=== PATIENT | female | born 1990 | race Two or more races ===

== ENCOUNTER 2017-05-24 20:53 | Emergency (ER) | payer OTHER ==
[~2017-05-24] VITALS: Ht 162.6 cm; Wt 99.8 kg
[2017-05-24 21:58] VITALS: BP 138/62
[2017-05-28 10:21] LABS: Hepatitis B Surface Antibody Positive
[2017-05-28 10:32] LABS: Hepatitis B Surface Antigen Negative (Negative)
== END 2017-05-24 23:59 | disposition home or self-care (01) ==
LOC: ER 20:53
DX: S61.012A Laceration without foreign body of left thumb without damage to nail, initial encounter (principal); W45.8XXA Other foreign body or object entering through skin, initial encounter; Y93.89 Activity, other specified; Y92.89 Other specified places as the place of occurrence of the external cause; Y99.8 Other external cause status
CPT/HCPCS: 12001; 36415; 86703; 86706; 86803; 87340

== ENCOUNTER → 2017-10-11 | Outpatient (CLI) | payer OTHER ==
[2017-10-11 15:57] LABS: Hepatitis B Surface Antibody Positive
[2017-10-11 16:51] LABS: Hepatitis B Surface Antigen Negative (Negative)
== END | disposition home or self-care (01) ==
LOC: LAB 15:08
PROVIDERS: ATTEND Preventive Medicine Preventive Medicine/Occupational Environmental Medicine
DX: S65.412A Laceration of blood vessel of left thumb, initial encounter (principal); Z77.21 Contact with and (suspected) exposure to potentially hazardous body fluids; Y99.0 Civilian activity done for income or pay; Y92.142 Bathroom in prison as the place of occurrence of the external cause; Y28.8XXA Contact with other sharp object, undetermined intent, initial encounter
CPT/HCPCS: 36415; 86703; 86706; 86803; 87340

== ENCOUNTER 2019-07-19 10:53 | Observation (INO) | payer MEDICAID, OTHER ==
[2019-07-19] MEDS ORDERED: PREN-153 OR (12:38)
== END 2019-07-19 16:03 | disposition home or self-care (01) | DRG 566 ==
LOC: LDRP 10:53
PROVIDERS: ADMIT Specialist; ATTEND Specialist
DX: O48.0 Post-term pregnancy (principal); Z3A.40 40 weeks gestation of pregnancy
CPT/HCPCS: 59025; 76818; 81002; G0378

== ENCOUNTER 2019-07-21 11:10 | Observation (INO) | payer MEDICAID ==
[~2019-07-21 11:10] MED LIST: PREN-153 OR
== END 2019-07-21 13:30 | disposition home or self-care (01) | DRG 566 ==
LOC: LDRP 11:10
PROVIDERS: ADMIT Obstetrics & Gynecology; ATTEND Obstetrics & Gynecology
DX: O48.0 Post-term pregnancy (principal); Z3A.40 40 weeks gestation of pregnancy
CPT/HCPCS: 59025; 76818; 81002; G0378

== ENCOUNTER 2019-07-21 19:23 | Inpatient (IN) | payer MEDICAID ==
[~2019-07-21] VITALS: Ht 162.6 cm; Wt 103.0 kg
[2019-07-21] MEDS ORDERED: LACT. RINGERS/OXYTOCIN 20UNITS 1,000 ML IV SCH (20:01)
[2019-07-21] MEDS ORDERED: LIDOCAINE 1% (LOCAL ANESTH.) PF 5ml SDV IJ ONE (20:15)
[2019-07-21] MEDS ORDERED: PHISODERM TOP SOLN 240ML BTL TOP PRN (20:15)
[2019-07-21] MEDS ORDERED: DERMOPLAST 60ML BOTTLE TOP PRN (20:15)
[2019-07-21] MEDS ORDERED: WITCH HAZEL-GLYCERIN PAD TOP PRN (20:15)
[2019-07-21 20:59] LABS: Basophils # (auto) 0 10 ^3/uL (0-0.2); Basophils % (auto) 0.2 % (0.0-2.0); Eosinophils # (auto) 0.1 10 ^3/uL (0-0.8); Eosinophils % (auto) 0.7 % (0.0-7.0); Hematocrit 36.1 % (36.0-46.0); Hemoglobin 12.6 g/dL (12.2-16.2); Lymphocytes # (auto) 2.5 10 ^3/uL (0.4-5.4); Lymphocytes % (auto) 25.7 % (10.0-50.0); Mean Corpuscular Hemoglobin 31.4 pg (28.0-32.0); Mean Corpuscular Hgb Conc. 34.8 g/dL (32.0-36.0); Mean Corpuscular Volume 90.1 fL (80.0-100.0); Monocytes # (auto) 0.5 10 ^3/uL (0-1.3); Monocytes % (auto) 5.7 % (0.0-12.0); Neutrophils # (auto) 6.5 10 ^3/uL (1.6-8.6); Neutrophils % (auto) 67.7 % (37.0-80.0); Platelet Count (auto) 268 10^3/uL (140-450); Red Blood Cells 4.01 10^6/uL (4.0-5.20); Red Cell Distribution Width 13.6 % (11.8-14.3); White Blood Cell 9.6 10^3/uL (4.4-10.8)
[2019-07-21 21:12] LABS: Urine Bacteria FEW /hpf (None Seen); Urine Blood TRACE /uL (Negative); Urine Hyaline Cast FEW /lpf (0 - 2); Urine Mucus FEW (None Seen); Urine Specific Gravity 1.027 (1.001-1.035); Urine WBC 10 /hpf (0 - 5)
[2019-07-21 21:15] LABS: INR 0.91 (0.9-1.15); Partial Thromboplastin Time 27.9 sec (23.64-32.05)
[2019-07-21 21:17] LABS: Albumin 2.3 g/dL (3.4-5.0); Anion Gap 8 (5-15); Blood Urea Nitrogen 12 mg/dL (7-18); Calcium 8.7 mg/dL (8.5-10.1); Carbon Dioxide 21 mmol/L (21-32); Chloride 109 mmol/L (98-107); Glucose 92 mg/dL (74-106); Potassium 3.9 mmol/L (3.5-5.1); Sodium 138 mmol/L (136-145)
[2019-07-21 21:19] LABS: Alanine Aminotransferase 15 U/L (13-56); Aspartate Aminotransferase 17 U/L (15-37); GFR African American 94 mL/min; GFR Non-African American 78 mL/min
[2019-07-21 21:22] LABS: Amphetamine Screen, Urine NEGATIVE (NEGATIVE); Barbiturate Scree,Urine NEGATIVE (NEGATIVE); Benzodiazephine Screen, Urine NEGATIVE (NEGATIVE); Cannabinoid Screen, Urine NEGATIVE (NEGATIVE); Cocaine Screen, Urine NEGATIVE (NEGATIVE); Opiate Scree,Urine NEGATIVE (NEGATIVE); Phencyclidine Screen, Urine NEGATIVE (NEGATIVE)
[2019-07-21 21:22] LABS: Alkaline Phosphatase 213 U/L (45-117); Bilirubin, Total < 0.1 mg/dL (0.2-1.0); Total Protein 6.9 g/dL (6.4-8.2)
[2019-07-21] MEDS: LACTATED RINGER'S 1,000 ML IV SCH (21:47)
[2019-07-21] MEDS ORDERED: LIDOCAINE 2%HCL (LOCAL ANESTH.) INJ 20ML MDV IJ ONE (22:00)
[2019-07-21] MEDS: miSOPROStol 50 MCG per PRE-CUT 1/2 TAB PO PRN (22:00)
[2019-07-22] MEDS ORDERED: METHYLERGONOVINE MALEATE 0.2 MG/ML AMP IM ONE (01:15)
[2019-07-22] MEDS: miSOPROStol 50 MCG per PRE-CUT 1/2 TAB PO PRN ×3 (02:00→10:19)
[2019-07-22] MEDS: LACTATED RINGER'S 1,000 ML IV SCH ×2 (02:01→09:37)
[2019-07-23 07:07] LABS: RPR Non Reactive (Non Reactive)
== END 2019-07-22 14:15 | disposition home or self-care (01) | DRG 566 ==
LOC: LDRP 19:23
PROVIDERS: ADMIT Obstetrics & Gynecology; ATTEND Obstetrics & Gynecology
PROC: 3E0P7VZ Introduction of Hormone into Female Reproductive, Via Natural or Artificial Opening (ICD-10-PCS; principal; 2019-07-21)
DX: O48.0 Post-term pregnancy (principal); Z3A.40 40 weeks gestation of pregnancy
CPT/HCPCS: 36415; 59025; 76818; 80053; 80307; 81001; 81002; 84112; 85025; 85610; 85730; 86592; 86850; 86900; 86901; 96361; 96365; 96366; G0378; J2590

== ENCOUNTER 2019-07-23 05:35 | Inpatient (IN) | payer MEDICAID ==
[~2019-07-23] VITALS: Ht 162.6 cm; Wt 103.0 kg
[2019-07-23] MEDS ORDERED: LACT. RINGERS/OXYTOCIN 20UNITS 1,000 ML IV ONE (05:50)
[2019-07-23] MEDS ORDERED: OXYTOCIN 10UNIT/ML 1ML VIAL ONE (05:50)
[2019-07-23] MEDS ORDERED: OXYTOCIN 10UNIT/ML 1ML VIAL IM ONE (06:30)
[2019-07-23] MEDS ORDERED: LACTATED RINGER'S 1,000 ML IV SCH (06:37)
[2019-07-23] MEDS ORDERED: LACT. RINGERS/OXYTOCIN 20UNITS 1,000 ML IV SCH (06:37)
[2019-07-23] MEDS ORDERED: CARBOPROST TROMETHAMINE 250 MCG/1ML VIAL IM PRN (06:45)
[2019-07-23] MEDS ORDERED: PHISODERM TOP SOLN 240ML BTL TOP PRN (06:45)
[2019-07-23] MEDS ORDERED: WITCH HAZEL-GLYCERIN PAD TOP PRN (06:45)
[2019-07-23] MEDS ORDERED: METHYLERGONOVINE MALEATE 0.2 MG/ML AMP IM PRN (06:45)
[2019-07-23] MEDS ORDERED: DERMOPLAST 60ML BOTTLE TOP PRN (06:45)
[2019-07-23] MEDS ORDERED: LIDOCAINE 2%HCL (LOCAL ANESTH.) INJ 20ML MDV ID ONE (06:45)
[2019-07-23] MEDS ORDERED: ACETAMINOPHEN 325 MG TAB PO PRN (07:30)
[2019-07-23] MEDS ORDERED: IBUPROFEN 600 MG TAB PO PRN (07:30)
[2019-07-23 07:51] LABS: Basophils # (auto) 0 10 ^3/uL (0-0.2); Basophils % (auto) 0.1 % (0.0-2.0); Eosinophils # (auto) 0 10 ^3/uL (0-0.8); Hematocrit 37.6 % (36.0-46.0); Hemoglobin 12.7 g/dL (12.2-16.2); Lymphocytes % (auto) 4.9 % (10.0-50.0); Mean Corpuscular Hemoglobin 30.1 pg (28.0-32.0); Mean Corpuscular Hgb Conc. 33.7 g/dL (32.0-36.0); Mean Corpuscular Volume 89.6 fL (80.0-100.0); Monocytes # (auto) 0.6 10 ^3/uL (0-1.3); Monocytes % (auto) 3.1 % (0.0-12.0); Neutrophils # (auto) 18.4 10 ^3/uL (1.6-8.6); Neutrophils % (auto) 91.9 % (37.0-80.0); Platelet Count (auto) 261 10^3/uL (140-450); Red Cell Distribution Width 13.6 % (11.8-14.3)
[2019-07-23 08:14] LABS: Albumin 2.1 g/dL (3.4-5.0); Calcium 8.7 mg/dL (8.5-10.1)
[2019-07-23 08:15] LABS: INR 0.94 (0.9-1.15); Partial Thromboplastin Time 28.6 sec (23.64-32.05)
[2019-07-23 08:16] LABS: BUN/Creatinine Ratio 16.4
[2019-07-23 08:18] LABS: Bilirubin, Total 0.3 mg/dL (0.2-1.0); Total Protein 6.8 g/dL (6.4-8.2)
--- NOTE | 2019-07-23 09:38 | NUR ---
Ambulation: Patient OOB with standby assistance by RN. Patient ambulated to bathroom with steady gait. Patient unable to void at this time. Educated pt regarding importance of first void within 6 hours of delivery. Encouraged to PO hydrate. Pt verbalizes understanding and agrees to comply. [facility] teaching provided with returned demonstration by patient. Dermoplast, tucks, and clean peripad applied. Clean gown provided and bed linen changed. Patient ambulated back to bed with steady gait and no distress noted.
[2019-07-23 11:00] VITALS: BP 109/58
[2019-07-23 14:30] VITALS: BP 106/52
[2019-07-23 19:00] VITALS: BP 101/50
[2019-07-23 23:00] VITALS: BP 100/54
[2019-07-24 03:00] VITALS: BP 101/57
[2019-07-24 04:06] LABS: RPR Non Reactive (Non Reactive)
[2019-07-24 06:30] VITALS: BP 108/67
[2019-07-24 11:20] VITALS: BP 121/62
[2019-07-24 14:30] VITALS: BP 122/66
--- NOTE | 2019-07-24 15:45 | NUR ---
PT GIVEN DISCHARGE INSTRUCTIONS AT BEDSIDE AND EDUCATION PROVIDED ON FOLLOW UP APPOINTMENTS.
--- NOTE | 2019-07-24 17:45 | NUR ---
Discharge: Discharge instructions given as ordered. Pt encouraged to follow up with [facility] as instructed. All questions and concerns addressed. Patient verbalized understanding. Medication reconciliation completed and copy given to patient. All required/requested vaccines given and copies of vaccinations given to patient. Patient encouraged to prepare to depart unit.
--- NOTE | 2019-07-24 17:55 | NUR ---
Discharge: Patient taken to vehicle ambulatory via steady gait with all personal belongings, accompanied by staff and family member. No distress noted at time of departure, no adverse changes in status since initial assessment.
== END 2019-07-24 17:30 | disposition home or self-care (01) | DRG 560 ==
LOC: LDRP 05:35
PROVIDERS: ADMIT Obstetrics & Gynecology; ATTEND Obstetrics & Gynecology
PROC: 10E0XZZ Delivery of Products of Conception, External Approach (ICD-10-PCS; principal; 2019-07-23)
PROC: 0UQMXZZ Repair Vulva, External Approach (ICD-10-PCS; 2019-07-23)
DX: O62.3 Precipitate labor (principal); O69.81X0 Labor and delivery complicated by cord around neck, without compression, not applicable or unspecified; Z37.0 Single live birth; Z3A.40 40 weeks gestation of pregnancy; O70.0 First degree perineal laceration during delivery
CPT/HCPCS: 36415; 59025; 59409; 80053; 84112; 85025; 85610; 85730; 86592; 86850; 86900; 86901; 96372; G0378; J2590

== ENCOUNTER → 2021-09-06 | Outpatient (CLI) | payer MEDICAID ==
[~2021-09-06] MED LIST changes: -PREN-153 OR; +PREN1TAB71 OR
[2021-09-06 10:59] LABS: Basophils # (auto) 0 10 ^3/uL (0-0.2); Basophils % (auto) 0.5 % (0.0-2.0); Eosinophils # (auto) 0.2 10 ^3/uL (0-0.8); Hematocrit 37.3 % (36.0-46.0); Hemoglobin 12.9 g/dL (12.2-16.2); Lymphocytes # (auto) 2.3 10 ^3/uL (0.4-5.4); Lymphocytes % (auto) 26.5 % (10.0-50.0); Mean Corpuscular Hemoglobin 30.7 pg (28.0-32.0); Mean Corpuscular Hgb Conc. 34.5 g/dL (32.0-36.0); Monocytes # (auto) 0.5 10 ^3/uL (0-1.3); Monocytes % (auto) 5.4 % (0.0-12.0); Neutrophils # (auto) 5.7 10 ^3/uL (1.6-8.6); Neutrophils % (auto) 65.6 % (37.0-80.0); Nucleated Red Blood Cells % 0.1 %; Red Blood Cells 4.19 10^6/uL (4.0-5.20); Red Cell Distribution Width 13.4 % (11.8-14.3); White Blood Cell 8.7 10^3/uL (4.4-10.8)
[2021-09-06 11:31] LABS: Amphetamine Screen, Urine NEGATIVE (NEGATIVE); Barbiturate Scree,Urine NEGATIVE (NEGATIVE); Benzodiazephine Screen, Urine NEGATIVE (NEGATIVE); Cannabinoid Screen, Urine NEGATIVE (NEGATIVE); Cocaine Screen, Urine NEGATIVE (NEGATIVE); Opiate Scree,Urine NEGATIVE (NEGATIVE); Phencyclidine Screen, Urine NEGATIVE (NEGATIVE)
== END | disposition home or self-care (01) ==
LOC: LAB 09:48
PROVIDERS: ATTEND Obstetrics & Gynecology
DX: Z31.430 Encounter of female for testing for genetic disease carrier status for procreative management (principal); Z11.3 Encounter for screening for infections with a predominantly sexual mode of transmission; Z72.51 High risk heterosexual behavior; Z36.1 Encounter for antenatal screening for raised alphafetoprotein level
CPT/HCPCS: 36415; 80307; 81025; 83036; 84112; 84144; 85025; 87086

== ENCOUNTER → 2021-09-28 | Outpatient (CLI) | payer BC | END | disposition home or self-care (01) | LOC: LAB 10:01 | PROVIDERS: ATTEND Obstetrics & Gynecology | DX: Z34.80 Encounter for supervision of other normal pregnancy, unspecified trimester (principal) | CPT/HCPCS: 86703; 86762; 86850; 86900; 86901 ==

== ENCOUNTER → 2021-10-19 | Outpatient (CLI) | payer BC ==
[2021-10-20 05:06] LABS: RPR Non Reactive (Non Reactive)
== END | disposition home or self-care (01) ==
LOC: LAB 09:01
PROVIDERS: ATTEND Obstetrics & Gynecology
DX: Z11.3 Encounter for screening for infections with a predominantly sexual mode of transmission (principal)
CPT/HCPCS: 86592

== ENCOUNTER → 2021-12-21 | Outpatient (CLI) | payer BC ==
[2021-12-21 09:33] LABS: Basophils # (auto) 0.1 10 ^3/uL (0-0.2); Basophils % (auto) 0.6 % (0.0-2.0); Eosinophils # (auto) 0.1 10 ^3/uL (0-0.8); Eosinophils % (auto) 0.9 % (0.0-7.0); Hematocrit 34.3 % (36.0-46.0); Hemoglobin 11.4 g/dL (12.2-16.2); Lymphocytes # (auto) 1.8 10 ^3/uL (0.4-5.4); Lymphocytes % (auto) 13.2 % (10.0-50.0); Mean Corpuscular Hemoglobin 30.3 pg (28.0-32.0); Mean Corpuscular Hgb Conc. 33.2 g/dL (32.0-36.0); Mean Corpuscular Volume 91.1 fL (80.0-100.0); Monocytes # (auto) 0.7 10 ^3/uL (0-1.3); Monocytes % (auto) 5.2 % (0.0-12.0); Neutrophils # (auto) 10.7 10 ^3/uL (1.6-8.6); Neutrophils % (auto) 80.1 % (37.0-80.0); Red Blood Cells 3.76 10^6/uL (4.0-5.20); Red Cell Distribution Width 13.5 % (11.8-14.3); White Blood Cell 13.3 10^3/uL (4.4-10.8)
== END | disposition home or self-care (01) ==
LOC: LAB 09:08
PROVIDERS: ATTEND Obstetrics & Gynecology
DX: O99.810 Abnormal glucose complicating pregnancy (principal)
CPT/HCPCS: 36415; 82951; 83036; 85025; 87340

== ENCOUNTER 2022-01-24 07:32 | Observation (INO) | payer BC | END 2022-01-24 12:50 | disposition home or self-care (01) | LOC: LDRP 11:05 | PROVIDERS: ADMIT Obstetrics & Gynecology; ATTEND Obstetrics & Gynecology | DX: O24.419 Gestational diabetes mellitus in pregnancy, unspecified control (principal); Z3A.31 31 weeks gestation of pregnancy | CPT/HCPCS: 59025; 76818; 81002; 82948; 82962; 94760; G0378 ==

== ENCOUNTER 2022-01-31 07:35 | Observation (INO) | payer BC | END 2022-01-31 11:24 | disposition home or self-care (01) | LOC: LDRP 09:09 → UNDOADMOB 09:09 → LDRP 10:05 → UNDODISOB 11:24 | PROVIDERS: ADMIT Obstetrics & Gynecology; ATTEND Obstetrics & Gynecology | DX: O24.419 Gestational diabetes mellitus in pregnancy, unspecified control (principal); O26.893 Other specified pregnancy related conditions, third trimester; M25.559 Pain in unspecified hip; Z3A.32 32 weeks gestation of pregnancy | CPT/HCPCS: 59025; 76818; 81002; 82962; 94760; G0378 ==

== ENCOUNTER 2022-02-07 09:17 | Observation (INO) | payer BC | END 2022-02-08 13:05 | disposition home or self-care (01) | LOC: UNDOADMOB 02-08 10:20 → LDRP 02-08 10:20 | PROVIDERS: ADMIT Obstetrics & Gynecology; ATTEND Obstetrics & Gynecology | DX: O24.419 Gestational diabetes mellitus in pregnancy, unspecified control (principal); Z3A.33 33 weeks gestation of pregnancy | CPT/HCPCS: 59025; 76818; 81002; 82948; 82962 ==

== ENCOUNTER 2022-02-14 08:47 | Observation (INO) | payer BC | END 2022-02-14 11:24 | disposition home or self-care (01) | LOC: UNDOADMOB 10:09 → LDRP 10:09 → UNDODISOB 11:24 | PROVIDERS: ADMIT Obstetrics & Gynecology; ATTEND Obstetrics & Gynecology | DX: O24.419 Gestational diabetes mellitus in pregnancy, unspecified control (principal); Z3A.34 34 weeks gestation of pregnancy; Z79.899 Other long term (current) drug therapy | CPT/HCPCS: 59025; 76818; 81002; 82948; 82962; 94760; G0378 ==

== ENCOUNTER 2022-02-21 10:51 | Observation (INO) | payer BC | END 2022-02-21 13:40 | disposition home or self-care (01) | LOC: LDRP 10:51 | PROVIDERS: ADMIT Obstetrics & Gynecology; ATTEND Obstetrics & Gynecology | DX: O24.419 Gestational diabetes mellitus in pregnancy, unspecified control (principal); Z3A.35 35 weeks gestation of pregnancy | CPT/HCPCS: 59025; 76818; 81002; 82948; 82962; 94760; G0378 ==

== ENCOUNTER → 2022-02-21 | Outpatient (CLI) | payer BC ==
[2022-02-21 14:15] LABS: Basophils # (auto) 0 10 ^3/uL (0-0.2); Basophils % (auto) 0.3 % (0.0-2.0); Eosinophils # (auto) 0.1 10 ^3/uL (0-0.8); Eosinophils % (auto) 0.9 % (0.0-7.0); Hematocrit 37.1 % (36.0-46.0); Hemoglobin 12.4 g/dL (12.2-16.2); Lymphocytes # (auto) 1.9 10 ^3/uL (0.4-5.4); Lymphocytes % (auto) 21.8 % (10.0-50.0); Mean Corpuscular Hemoglobin 30.1 pg (28.0-32.0); Mean Corpuscular Hgb Conc. 33.3 g/dL (32.0-36.0); Mean Corpuscular Volume 90.4 fL (80.0-100.0); Monocytes # (auto) 0.3 10 ^3/uL (0-1.3); Monocytes % (auto) 3.1 % (0.0-12.0); Neutrophils # (auto) 6.5 10 ^3/uL (1.6-8.6); Neutrophils % (auto) 73.9 % (37.0-80.0); Red Cell Distribution Width 13.8 % (11.8-14.3); White Blood Cell 8.8 10^3/uL (4.4-10.8)
[2022-02-22 06:06] LABS: RPR Non Reactive (Non Reactive)
== END | disposition home or self-care (01) ==
LOC: LAB 13:57
PROVIDERS: ATTEND Obstetrics & Gynecology
DX: Z34.83 Encounter for supervision of other normal pregnancy, third trimester (principal); Z3A.00 Weeks of gestation of pregnancy not specified
CPT/HCPCS: 36415; 84112; 85025; 86592

== ENCOUNTER 2022-02-28 10:15 | Observation (INO) | payer BC | END 2022-02-28 14:12 | disposition home or self-care (01) | LOC: LDRP 10:15 → UNDOADMOB 10:15 → LDRP 12:43 | PROVIDERS: ADMIT Obstetrics & Gynecology; ATTEND Obstetrics & Gynecology | DX: O24.419 Gestational diabetes mellitus in pregnancy, unspecified control (principal); Z3A.36 36 weeks gestation of pregnancy | CPT/HCPCS: 59025; 76818; 81002; 82948; 82962; G0378 ==

== ENCOUNTER 2022-03-07 08:58 | Observation (INO) | payer BC | END 2022-03-07 14:36 | disposition home or self-care (01) | LOC: LDRP 13:02 → UNDOADMOB 13:42 → LDRP 13:42 → UNDODISOB 14:36 | PROVIDERS: ADMIT Obstetrics & Gynecology; ATTEND Obstetrics & Gynecology | DX: O24.419 Gestational diabetes mellitus in pregnancy, unspecified control (principal); Z3A.37 37 weeks gestation of pregnancy | CPT/HCPCS: 59025; 76818; 81002; 82948; 82962; G0378 ==

== ENCOUNTER 2022-03-14 10:16 | Observation (INO) | payer BC ==
[2022-03-14] MEDS ORDERED: GLYB1.257 PO (14:10)
== END 2022-03-14 14:33 | disposition home or self-care (01) ==
LOC: LDRP 13:32 → UNDOADMOB 13:32 → LDRP 13:35
PROVIDERS: ADMIT Obstetrics & Gynecology; ATTEND Obstetrics & Gynecology
DX: O24.419 Gestational diabetes mellitus in pregnancy, unspecified control (principal); Z3A.38 38 weeks gestation of pregnancy
CPT/HCPCS: 59025; 76818; 81002; 82948; 82962; 94760; G0378

== ENCOUNTER 2022-03-17 08:31 | Observation (INO) | payer BC ==
[~2022-03-17 08:31] MED LIST changes: +GLYB1.257 PO
== END 2022-03-17 12:03 | disposition home or self-care (01) ==
LOC: UNDOADMOB 10:05 → LDRP 10:05 → UNDODISOB 12:03
PROVIDERS: ADMIT Obstetrics & Gynecology; ATTEND Obstetrics & Gynecology
DX: O24.419 Gestational diabetes mellitus in pregnancy, unspecified control (principal); O26.893 Other specified pregnancy related conditions, third trimester; N89.8 Other specified noninflammatory disorders of vagina; Z3A.38 38 weeks gestation of pregnancy
CPT/HCPCS: 59025; 76818; 81002; 82948; 82962; 94760; G0378

== ENCOUNTER 2022-03-21 14:14 | Observation (INO) | payer BC | END 2022-03-21 16:15 | disposition home or self-care (01) | LOC: LDRP 14:14 → UNDOADMOB 14:14 → LDRP 14:47 → UNDODISOB 16:15 | PROVIDERS: ADMIT Obstetrics & Gynecology; ATTEND Obstetrics & Gynecology | DX: O24.419 Gestational diabetes mellitus in pregnancy, unspecified control (principal); Z3A.39 39 weeks gestation of pregnancy | CPT/HCPCS: 59025; 76818; 81002; 82948; 82962; 94760 ==

== ENCOUNTER 2022-11-29 12:54 | Emergency (ER) | payer BC, MEDICAID ==
[~2022-11-29] VITALS: Ht 162.6 cm; Wt 100.4 kg
[~2022-11-29 12:54] MED LIST changes: -GLYB1.257 PO
[2022-11-29] MEDS ORDERED: OFL50TS OT (14:10)
[2022-11-29] MEDS ORDERED: IBU600T PO (14:10)
[2022-11-29] MEDS ORDERED: AUG875T PO (14:10)
[2022-11-29 14:15] VITALS: BP 130/70; PULSE 72; RESP 18; TEMP 98.7; O2SAT 99
[2022-11-29] MEDS ORDERED: HYDROcodone-ACET 5/325MG TAB PO ONE ×2 (14:15→14:30)
[2022-11-29] MEDS ORDERED: DexAMETHasone SOD PHOS 10MG/1ML VIAL INJ IM ONE (14:30)
[2022-11-29] MEDS ORDERED: cefTRIAXone SOD 1,000 MG VL IM ONE (14:30)
== END 2022-11-29 14:54 | disposition home or self-care (01) ==
LOC: ER 12:54 → EEVIPCON 12:54 → ER 14:54
DX: H66.93 Otitis media, unspecified, bilateral (principal); Z79.899 Other long term (current) drug therapy
CPT/HCPCS: 96372; 99284; J0696; J1100

== ENCOUNTER → 2023-01-24 | Outpatient (CLI) | payer BC, MEDICAID ==
[~2023-01-24] MED LIST changes: +AUG875T PO; +IBU600T PO; +OFL50TS OT
[2023-01-24 13:24] LABS: Basophils # (auto) 0 10 ^3/uL (0-0.2); Basophils % (auto) 0.6 % (0.0-2.0); Eosinophils # (auto) 0.2 10 ^3/uL (0-0.8); Eosinophils % (auto) 3.4 % (0.0-7.0); Hematocrit 40.2 % (36.0-46.0); Hemoglobin 13.7 g/dL (12.2-16.2); Lymphocytes # (auto) 2.8 10 ^3/uL (0.4-5.4); Lymphocytes % (auto) 44.8 % (10.0-50.0); Mean Corpuscular Hemoglobin 30.8 pg (28.0-32.0); Mean Corpuscular Hgb Conc. 34.1 g/dL (32.0-36.0); Mean Corpuscular Volume 90.3 fL (80.0-100.0); Monocytes # (auto) 0.4 10 ^3/uL (0-1.3); Monocytes % (auto) 6.6 % (0.0-12.0); Neutrophils # (auto) 2.8 10 ^3/uL (1.6-8.6); Neutrophils % (auto) 44.6 % (37.0-80.0); Nucleated Red Blood Cells % 0.1 %; Red Blood Cells 4.45 10^6/uL (4.0-5.20); Red Cell Distribution Width 13.1 % (11.8-14.3); White Blood Cell 6.2 10^3/uL (4.4-10.8)
[2023-01-24 13:52] LABS: Alanine Aminotransferase 32 U/L (7-40); Albumin 5.4 g/dL (3.2-4.8); Alkaline Phosphatase 90 U/L (46-116); Anion Gap 4 (5-15); Aspartate Aminotransferase 22 U/L (13-40); Bilirubin, Total 0.6 mg/dL (0.2-1.0); Blood Urea Nitrogen 12 mg/dL (9-23); Calcium 9.4 mg/dL (8.7-10.4); Carbon Dioxide 30 mmol/L (20-30); Chloride 104 mmol/L (98-107); Glucose 97 mg/dL (74-106); Potassium 3.6 mmol/L (3.5-5.1); Sodium 138 mmol/L (136-145); Total Protein 8.2 g/dL (5.7-8.2)
[2023-01-24 14:20] LABS: Triglycerides 173 mg/dL (< 150)
[2023-01-24 14:21] LABS: LDL Cholesterol 71 mg/dL (< 100)
[2023-01-24 14:22] LABS: Cholesterol 142 mg/dL (< 200); HDL Cholesterol 38 mg/dL (40-59)
== END | disposition home or self-care (01) ==
LOC: LAB 12:49
PROVIDERS: ATTEND Internal Medicine
DX: Z00.01 Encounter for general adult medical examination with abnormal findings (principal); Z13.1 Encounter for screening for diabetes mellitus; E66.9 Obesity, unspecified; L81.8 Other specified disorders of pigmentation; Z83.3 Family history of diabetes mellitus; Z29.9 Encounter for prophylactic measures, unspecified
CPT/HCPCS: 36415; 80053; 80061; 83036; 84439; 84443; 85025; 86703; 86803